=== PATIENT | male | born 1945 | race Caucasian/White ===

== ENCOUNTER 2016-07-23 19:44 | Inpatient (IN) | payer MEDICAID ==
[~2016-07-23] VITALS: Ht 172.7 cm; Wt 80.7 kg
[~2016-07-23 19:44] MED LIST: ACET650S26 GT; BACL10TA GT; BISA10SU8 RC; CHLO473M3 PO; CLON0.1T GT; CLON0.5T GT; DEXT1CAP3 GT; DOCU100T2 GT; HEPA500014 IJ; HYDR-548 GT; LANS30CA10 GT; LORA1TAB GT; MAGN400O6 GT; NA P133E RC; QUET100T GT; QUET50TA GT; SENN8.6T6 GT; VALP250S11 GT
[2016-07-23 20:14] LABS: CALCIUM, SERUM 8.6 mg/dL (8.5-10.1); CARBON DIOXIDE 27 mmol/L (21-32); CHLORIDE 97 mmol/L (98-107); CREATININE 0.5 mg/dL (0.6-1.3); GLUCOSE 117 mg/dL (74-106); POTASSIUM 3.9 mmol/L (3.5-5.1); SODIUM SERUM 132 mmol/L (136-145); UREA NITROGEN, BLOOD 9 mg/dL (7-18)
[2016-07-23 20:18] LABS: PROTHROMBIN TIME 10.7 SECS (9.5-12.7)
[2016-07-23 20:21] LABS: TROPONIN I < 0.017 ng/mL (0.00-0.056)
[2016-07-23 20:27] LABS: B-TYPE NATRIURETIC PEPTIDE 135 PG/ML (0-125)
[2016-07-23 21:12] LABS: BASOPHILS % (AUTO) 0.1 % (0.0-2.0); EOSINOPHILS # (AUTO) 0.2 /CMM (0.0-0.7); EOSINOPHILS % (AUTO) 1.5 % (0.0-6.0); HEMATOCRIT 35 % (39-51); HEMOGLOBIN 12.6 g/dL (13.5-17.5); LYMPHOCYTES # (AUTO) 1.6 /CMM (0.8-4.8); LYMPHOCYTES % (AUTO) 13.3 % (20.0-44.0); MEAN CORPUSCULAR HEMOGLOBIN 34 PG (26.0-33.0); MEAN CORPUSCULAR HGB CONC 36 g/dl (31.0-36.0); MEAN CORPUSCULAR VOLUME 95 fL (80-96); MONOCYTES # (AUTO) 0.7 /CMM (0.1-1.30); MONOCYTES % (AUTO) 5.8 % (2.0-12.0); NEUTROPHILS # (AUTO) 9.8 /CMM (1.8-8.9); NEUTROPHILS % (AUTO) 79.3 % (43.0-81.0); PLATELET COUNT (AUTO) 262 /CMM (150-450); RDW COEFFICIENT OF VARIATION 14.5 (11.5-15.0); RED BLOOD CELL COUNT(AUTO) 3.73 MIL/uL (4.5-6.0); WHITE BLOOD COUNT (AUTO) 12.3 K/uL (4.3-11.0)
[2016-07-23 22:00] VITALS: BP 156/91
[2016-07-23] MEDS ORDERED: BISACODYL SUPP (10 MG) 10 MG/SUPP.RECT SUPP.RECT RC PRN (23:00)
[2016-07-23] MEDS ORDERED: MORPHINE SULFATE INJ 2 MG/ML DISP.SYRIN IV PRN (23:00)
[2016-07-23] MEDS ORDERED: CLONIDINE HCL 0.1 MG TABLET GT PRN (23:00)
[2016-07-23] MEDS ORDERED: ACETAMINOPHEN 650 MG/20.3 ML UDC GT PRN (23:00)
[2016-07-23] MEDS ORDERED: NA PHOS,M-B/NA PHOS,DI-BA 1 EA ENEMA RC PRN (23:00)
[2016-07-23] MEDS ORDERED: LORAZEPAM 1 MG TABLET GT PRN (23:00)
[2016-07-23] MEDS ORDERED: HYDROCODONE/APAP 10/325MG 1 EA TABLET GT PRN (23:00)
[2016-07-23] MEDS ORDERED: ALBUTEROL FS 2.5 MG/3 ML VIAL.NEB NEB PRN (23:00)
[2016-07-23] MEDS ORDERED: MAGNESIUM HYDROXIDE 30 ML UDC GT PRN (23:00)
[2016-07-24] VITALS: BP 116/75
[2016-07-24] MEDS ORDERED: VANCOMYCIN 1 GM in IV D5W 250 ML IV ONE ×2
[2016-07-24] MEDS ORDERED: IV SET PRIMARY PUMP SET 1 EA INFUS.SET MC ONE (00:11)
[2016-07-24] MEDS ORDERED: VANCOMYCIN 1 GM VIAL ONE (00:11)
[2016-07-24] MEDS ORDERED: IV D5W 250 ML IV ONE (00:12)
[2016-07-24] MEDS ORDERED: IV NS 0.9% 250 ML IV ONE (00:16)
[2016-07-24] MEDS ORDERED: SECONDARY IV SET 1 EA INFUS.SET MC ONE (00:17)
[2016-07-24] MEDS ORDERED: FIBERSOURCE HN 1,000 ML BOTTLE ONE (00:31)
[2016-07-24] MEDS ORDERED: FIBERSOURCE HN 1,000 ML BOTTLE GT PRN ×2 (01:00→08:03)
[2016-07-24 04:00] VITALS: BP 116/68
[2016-07-24] MEDS ORDERED: IV D5W 50 ML IV ONE (04:09)
[2016-07-24] MEDS ORDERED: clonazePAM 0.5 MG TABLET ONE (04:09)
[2016-07-24] MEDS ORDERED: PIPERACILLIN /TAZOBACTAM 3.375 G VIAL IV ONE (04:09)
[2016-07-24] MEDS: clonazePAM 0.5 MG TABLET GT SCH ×3 (04:40→20:47)
[2016-07-24] MEDS ORDERED: PIPERACILLIN /TAZOBACTAM 3.375 G in IV D5W 50 ML IV SCH (05:00)
[2016-07-24 08:00] VITALS: BP 112/70
[2016-07-24 08:26] LABS: BASOPHILS # (AUTO) 0.2 /CMM (0.0-0.2); BASOPHILS % (AUTO) 1.7 % (0.0-2.0); EOSINOPHILS # (AUTO) 0.4 /CMM (0.0-0.7); HEMATOCRIT 32 % (39-51); LYMPHOCYTES # (AUTO) 1.5 /CMM (0.8-4.8); LYMPHOCYTES % (AUTO) 13.5 % (20.0-44.0); MEAN CORPUSCULAR HEMOGLOBIN 33 PG (26.0-33.0); MEAN CORPUSCULAR HGB CONC 35 g/dl (31.0-36.0); MEAN CORPUSCULAR VOLUME 95 fL (80-96); MONOCYTES # (AUTO) 0.8 /CMM (0.1-1.30); MONOCYTES % (AUTO) 7.3 % (2.0-12.0); NEUTROPHILS # (AUTO) 7.9 /CMM (1.8-8.9); NEUTROPHILS % (AUTO) 73.5 % (43.0-81.0); PLATELET COUNT (AUTO) 238 /CMM (150-450); RDW COEFFICIENT OF VARIATION 14.3 (11.5-15.0); RED BLOOD CELL COUNT(AUTO) 3.33 MIL/uL (4.5-6.0); WHITE BLOOD COUNT (AUTO) 10.8 K/uL (4.3-11.0)
[2016-07-24] MEDS: BACLOFEN (10 MG) 10 MG TABLET GT SCH ×2 (08:42→20:47)
[2016-07-24] MEDS: PANTOPRAZOLE 40 MG VIAL IV SCH (08:42)
[2016-07-24 08:46] LABS: ALBUMIN 2.6 g/dL (3.4-5.0); BILIRUBIN,TOTAL 0.4 mg/dL (0.2-1.0); CALCIUM, SERUM 8.5 mg/dL (8.5-10.1); CREATININE 0.6 mg/dL (0.6-1.3); PHOSPHORUS 3.5 mg/dL (2.5-4.9); TOTAL PROTEIN, SERUM 6.7 g/dL (6.4-8.2)
[2016-07-24 08:49] LABS: THYROID STIMULATING HORMONE 4.371 uIU/mL (0.358-3.74)
[2016-07-24] MEDS ORDERED: Medication Not On Formulary EA (Dextromethorphan Hbr/Quinidine (Nuedexta 20-10 Mg Capsul GT SCH ×2 (09:00)
[2016-07-24] MEDS ORDERED: FEE PK DOSING 1 MIN EA MC ONE (09:10)
[2016-07-24] MEDS: VALPROIC ACID 250 MG/5 ML UDC GT SCH ×3 (09:37→17:43)
[2016-07-24] MEDS: DOCUSATE SODIUM LIQ 100 MG/10 ML UDC GT SCH (09:37)
[2016-07-24] MEDS: QUETIAPINE FUMARATE 25 MG TABLET GT SCH ×2 (09:37→17:43)
[2016-07-24] MEDS: PIPERACILLIN /TAZOBACTAM 3.375 G in IV D5W 50 ML IV SCH ×2 (12:13→18:01)
[2016-07-24] MEDS: VANCOMYCIN 0.75 GM in IV D5W 250 ML IV SCH (13:08)
[2016-07-24] MEDS: ENOXAPARIN SODIUM 40 MG/0.4 ML DISP.SYRIN SQ SCH (13:09)
[2016-07-24 16:00] VITALS: BP 102/61
[2016-07-24] MEDS: NUTREN PULMONARY 1,000 ML BAG GT PRN (17:45)
[2016-07-24 19:40] VITALS: BP 108/65
[2016-07-24 20:00] VITALS: BP 108/65
[2016-07-24] MEDS: QUETIAPINE FUMARATE 100 MG TABLET GT SCH (21:05)
[2016-07-24] MEDS: SENNOSIDES 8.6 MG TABLET GT SCH (21:05)
[2016-07-24] MEDS ORDERED: VANCOMYCIN 0.75 GM in IV D5W 250 ML IV SCH (23:00)
[2016-07-25] MEDS ORDERED: SECONDARY IV SET 1 EA INFUS.SET MC ONE (00:17)
[2016-07-25] MEDS: PIPERACILLIN /TAZOBACTAM 3.375 G in IV D5W 50 ML IV SCH ×4 (00:23→17:22)
[2016-07-25] MEDS: VANCOMYCIN 0.75 GM in IV D5W 250 ML IV SCH (00:31)
[2016-07-25] MEDS: clonazePAM 0.5 MG TABLET GT SCH ×4 (05:21→21:53)
[2016-07-25 07:35] LABS: BASOPHILS # (AUTO) 0.1 /CMM (0.0-0.2); BASOPHILS % (AUTO) 0.8 % (0.0-2.0); EOSINOPHILS # (AUTO) 0.7 /CMM (0.0-0.7); EOSINOPHILS % (AUTO) 7.7 % (0.0-6.0); HEMATOCRIT 37 % (39-51); HEMOGLOBIN 12.7 g/dL (13.5-17.5); LYMPHOCYTES # (AUTO) 1.2 /CMM (0.8-4.8); LYMPHOCYTES % (AUTO) 13.4 % (20.0-44.0); MEAN CORPUSCULAR HEMOGLOBIN 33 PG (26.0-33.0); MEAN CORPUSCULAR HGB CONC 34 g/dl (31.0-36.0); MEAN CORPUSCULAR VOLUME 96 fL (80-96); MONOCYTES # (AUTO) 1.1 /CMM (0.1-1.30); MONOCYTES % (AUTO) 11.9 % (2.0-12.0); NEUTROPHILS # (AUTO) 5.9 /CMM (1.8-8.9); NEUTROPHILS % (AUTO) 66.2 % (43.0-81.0); PLATELET COUNT (AUTO) 234 /CMM (150-450); RDW COEFFICIENT OF VARIATION 15.3 (11.5-15.0); RED BLOOD CELL COUNT(AUTO) 3.88 MIL/uL (4.5-6.0); WHITE BLOOD COUNT (AUTO) 8.9 K/uL (4.3-11.0)
[2016-07-25 07:56] LABS: CALCIUM, SERUM 9.1 mg/dL (8.5-10.1); CREATININE 0.7 mg/dL (0.6-1.3); MAGNESIUM 2.3 mg/dL (1.8-2.4); POTASSIUM 4.2 mmol/L (3.5-5.1)
[2016-07-25 08:00] VITALS: BP 111/66
[2016-07-25] MEDS: VALPROIC ACID 250 MG/5 ML UDC GT SCH ×4 (08:35→17:00)
[2016-07-25] MEDS: DOCUSATE SODIUM LIQ 100 MG/10 ML UDC GT SCH (08:35)
[2016-07-25] MEDS: PANTOPRAZOLE 40 MG VIAL IV SCH (08:35)
[2016-07-25] MEDS: BACLOFEN (10 MG) 10 MG TABLET GT SCH ×2 (08:36→21:53)
[2016-07-25] MEDS: QUETIAPINE FUMARATE 25 MG TABLET GT SCH ×2 (08:36→17:00)
[2016-07-25] MEDS: ENOXAPARIN SODIUM 40 MG/0.4 ML DISP.SYRIN SQ SCH (08:38)
[2016-07-25] MEDS: Z GUARD REMEDY 2 OZ OINT TP SCH (13:12)
[2016-07-25] MEDS: HYDROGEL DRESSING 90 GM TUBE TP PRN (13:12)
[2016-07-25] MEDS: HYDROGEL DRESSING 90 GM TUBE TP SCH (13:19)
[2016-07-25 16:00] VITALS: BP 119/75
[2016-07-25 20:00] VITALS: BP 131/85
[2016-07-25] MEDS ORDERED: IV D5/0.45 NACL 1,000 ML IV PRN (20:00)
[2016-07-25] MEDS: QUETIAPINE FUMARATE 100 MG TABLET GT SCH (21:53)
[2016-07-25] MEDS: SENNOSIDES 8.6 MG TABLET GT SCH (21:53)
[2016-07-25] MEDS ORDERED: IV SET PRIMARY PUMP SET 1 EA INFUS.SET MC ONE (21:56)
[2016-07-26] MEDS: PIPERACILLIN /TAZOBACTAM 3.375 G in IV D5W 50 ML IV SCH ×4 (00:28→17:00)
[2016-07-26] MEDS: clonazePAM 0.5 MG TABLET GT SCH ×3 (04:27→21:06)
[2016-07-26 06:25] LABS: BASOPHILS % (AUTO) 0.4 % (0.0-2.0); EOSINOPHILS # (AUTO) 0.5 /CMM (0.0-0.7); EOSINOPHILS % (AUTO) 9.6 % (0.0-6.0); HEMATOCRIT 32 % (39-51); HEMOGLOBIN 11.2 g/dL (13.5-17.5); LYMPHOCYTES # (AUTO) 1.3 /CMM (0.8-4.8); MEAN CORPUSCULAR HEMOGLOBIN 33 PG (26.0-33.0); MEAN CORPUSCULAR HGB CONC 35 g/dl (31.0-36.0); MEAN CORPUSCULAR VOLUME 96 fL (80-96); MONOCYTES # (AUTO) 0.8 /CMM (0.1-1.30); MONOCYTES % (AUTO) 15.1 % (2.0-12.0); NEUTROPHILS # (AUTO) 2.7 /CMM (1.8-8.9); NEUTROPHILS % (AUTO) 50.9 % (43.0-81.0); PLATELET COUNT (AUTO) 266 /CMM (150-450); RDW COEFFICIENT OF VARIATION 15.3 (11.5-15.0); RED BLOOD CELL COUNT(AUTO) 3.39 MIL/uL (4.5-6.0); WHITE BLOOD COUNT (AUTO) 5.2 K/uL (4.3-11.0)
[2016-07-26 07:00] LABS: CREATININE 0.7 mg/dL (0.6-1.3); MAGNESIUM 2.3 mg/dL (1.8-2.4)
[2016-07-26 08:00] VITALS: BP 120/81
[2016-07-26] MEDS: VALPROIC ACID 250 MG/5 ML UDC GT SCH ×3 (08:36→16:50)
[2016-07-26] MEDS: BACLOFEN (10 MG) 10 MG TABLET GT SCH ×2 (08:36→21:06)
[2016-07-26] MEDS: QUETIAPINE FUMARATE 25 MG TABLET GT SCH ×2 (08:36→16:50)
[2016-07-26] MEDS: PANTOPRAZOLE 40 MG VIAL IV SCH (08:36)
[2016-07-26] MEDS: DOCUSATE SODIUM LIQ 100 MG/10 ML UDC GT SCH (08:36)
[2016-07-26] MEDS: Z GUARD REMEDY 2 OZ OINT TP SCH (08:37)
[2016-07-26] MEDS: HYDROGEL DRESSING 90 GM TUBE TP SCH (08:37)
[2016-07-26] MEDS: ENOXAPARIN SODIUM 40 MG/0.4 ML DISP.SYRIN SQ SCH (08:38)
[2016-07-26] MEDS: NUTREN PULMONARY 1,000 ML BAG GT PRN (11:07)
[2016-07-26] MEDS ORDERED: VANCOMYCIN 1.25 GM in IV D5W 500 ML IV ONE (15:00)
[2016-07-26 16:00] VITALS: BP 109/76
[2016-07-26] MEDS ORDERED: IV NS 0.9% 250 ML IV ONE (17:21)
[2016-07-26 20:00] VITALS: BP 124/77
[2016-07-26 20:42] VITALS: BP 124/77
[2016-07-26] MEDS: QUETIAPINE FUMARATE 100 MG TABLET GT SCH (21:06)
[2016-07-26] MEDS: SENNOSIDES 8.6 MG TABLET GT SCH (21:06)
[2016-07-26] MEDS: MUPIROCIN OINT 2% 22 GM TUBE SCH (21:07)
[2016-07-27] MEDS: PIPERACILLIN /TAZOBACTAM 3.375 G in IV D5W 50 ML IV SCH ×5 (00:52→23:50)
[2016-07-27] MEDS: VANCOMYCIN 1 GM in IV D5W 250 ML IV SCH ×2 (03:49→15:20)
[2016-07-27] MEDS: clonazePAM 0.5 MG TABLET GT SCH ×3 (05:27→21:17)
[2016-07-27 08:00] VITALS: BP 129/78
[2016-07-27] MEDS: NUTREN PULMONARY 1,000 ML BAG GT PRN (08:41)
[2016-07-27] MEDS: Z GUARD REMEDY 2 OZ OINT TP SCH (08:41)
[2016-07-27] MEDS: VALPROIC ACID 250 MG/5 ML UDC GT SCH ×3 (08:41→17:15)
[2016-07-27] MEDS: PANTOPRAZOLE 40 MG VIAL IV SCH (08:41)
[2016-07-27] MEDS: MUPIROCIN OINT 2% 22 GM TUBE SCH ×2 (08:42→21:19)
[2016-07-27] MEDS: HYDROGEL DRESSING 90 GM TUBE TP SCH (08:42)
[2016-07-27] MEDS: DOCUSATE SODIUM LIQ 100 MG/10 ML UDC GT SCH (08:42)
[2016-07-27] MEDS: BACLOFEN (10 MG) 10 MG TABLET GT SCH ×2 (08:42→21:17)
[2016-07-27] MEDS: QUETIAPINE FUMARATE 25 MG TABLET GT SCH ×2 (08:42→17:15)
[2016-07-27] MEDS: ENOXAPARIN SODIUM 40 MG/0.4 ML DISP.SYRIN SQ SCH (08:43)
[2016-07-27 09:01] LABS: BASOPHILS % (AUTO) 0.2 % (0.0-2.0); EOSINOPHILS # (AUTO) 0.3 /CMM (0.0-0.7); EOSINOPHILS % (AUTO) 3.6 % (0.0-6.0); HEMATOCRIT 33 % (39-51); HEMOGLOBIN 11.6 g/dL (13.5-17.5); LYMPHOCYTES # (AUTO) 1.3 /CMM (0.8-4.8); LYMPHOCYTES % (AUTO) 15.3 % (20.0-44.0); MEAN CORPUSCULAR HEMOGLOBIN 33 PG (26.0-33.0); MEAN CORPUSCULAR HGB CONC 35 g/dl (31.0-36.0); MEAN CORPUSCULAR VOLUME 95 fL (80-96); MONOCYTES # (AUTO) 0.9 /CMM (0.1-1.30); MONOCYTES % (AUTO) 11.4 % (2.0-12.0); NEUTROPHILS # (AUTO) 5.7 /CMM (1.8-8.9); NEUTROPHILS % (AUTO) 69.5 % (43.0-81.0); PLATELET COUNT (AUTO) 265 /CMM (150-450); RDW COEFFICIENT OF VARIATION 14.5 (11.5-15.0); WHITE BLOOD COUNT (AUTO) 8.2 K/uL (4.3-11.0)
[2016-07-27 09:03] LABS: CALCIUM, SERUM 8.5 mg/dL (8.5-10.1); CREATININE 1.3 mg/dL (0.6-1.3); MAGNESIUM 2.4 mg/dL (1.8-2.4); PHOSPHORUS 3.9 mg/dL (2.5-4.9); POTASSIUM 3.7 mmol/L (3.5-5.1)
[2016-07-27] MEDS ORDERED: IV NS 0.9% 250 ML IV ONE (12:30)
[2016-07-27 16:00] VITALS: BP 135/80
[2016-07-27 20:00] VITALS: BP 121/76
[2016-07-27] MEDS: SENNOSIDES 8.6 MG TABLET GT SCH (21:17)
[2016-07-27] MEDS: QUETIAPINE FUMARATE 100 MG TABLET GT SCH (21:17)
[2016-07-28] MEDS: VANCOMYCIN 1 GM in IV D5W 250 ML IV SCH ×2 (03:00→15:00)
[2016-07-28] MEDS: PIPERACILLIN /TAZOBACTAM 3.375 G in IV D5W 50 ML IV SCH ×3 (05:03→18:12)
[2016-07-28] MEDS: NUTREN PULMONARY 1,000 ML BAG GT PRN (05:56)
[2016-07-28] MEDS: clonazePAM 0.5 MG TABLET GT SCH ×3 (05:56→21:30)
[2016-07-28] MEDS: Z GUARD REMEDY 2 OZ OINT TP PRN (05:58)
[2016-07-28 06:31] LABS: CALCIUM, SERUM 8.8 mg/dL (8.5-10.1); CREATININE 1.9 mg/dL (0.6-1.3); POTASSIUM 3.4 mmol/L (3.5-5.1)
[2016-07-28 08:00] VITALS: BP 155/73
[2016-07-28] MEDS: VALPROIC ACID 250 MG/5 ML UDC GT SCH ×3 (08:40→16:32)
[2016-07-28] MEDS: BACLOFEN (10 MG) 10 MG TABLET GT SCH ×2 (08:40→21:30)
[2016-07-28] MEDS: DOCUSATE SODIUM LIQ 100 MG/10 ML UDC GT SCH (08:40)
[2016-07-28] MEDS: QUETIAPINE FUMARATE 25 MG TABLET GT SCH ×2 (08:41→16:31)
[2016-07-28] MEDS: PANTOPRAZOLE 40 MG VIAL IV SCH (08:41)
[2016-07-28] MEDS: Z GUARD REMEDY 2 OZ OINT TP SCH (08:42)
[2016-07-28] MEDS: MUPIROCIN OINT 2% 22 GM TUBE SCH ×2 (08:43→21:30)
[2016-07-28] MEDS: HYDROGEL DRESSING 90 GM TUBE TP SCH (08:43)
[2016-07-28] MEDS: ENOXAPARIN SODIUM 40 MG/0.4 ML DISP.SYRIN SQ SCH (08:45)
[2016-07-28] MEDS ORDERED: POTASSIUM CHLORIDE 20 MEQ POWDER PACKET GT ONE (11:30)
[2016-07-28] MEDS ORDERED: ASPIRIN 81 MG TAB.CHEW PO ONE ×2 (12:00)
[2016-07-28 16:00] VITALS: BP_SYST 158; BP_DIAS 82; BP_DIAS 88
[2016-07-28 20:00] VITALS: BP 110/68
[2016-07-28] MEDS: QUETIAPINE FUMARATE 100 MG TABLET GT SCH (21:30)
[2016-07-28] MEDS: SENNOSIDES 8.6 MG TABLET GT SCH (21:30)
[2016-07-28] MEDS: LINEZOLID 600 MG TABLET GT SCH (21:31)
[2016-07-29] MEDS: PIPERACILLIN /TAZOBACTAM 2.25 G in IV D5W 50 ML IV SCH ×4 (00:22→17:38)
[2016-07-29] MEDS: NUTREN PULMONARY 1,000 ML BAG GT PRN (06:26)
[2016-07-29] MEDS: clonazePAM 0.5 MG TABLET GT SCH ×3 (06:26→21:53)
[2016-07-29] MEDS: Z GUARD REMEDY 2 OZ OINT TP PRN (06:27)
[2016-07-29] MEDS: HYDROGEL DRESSING 90 GM TUBE TP PRN (06:27)
[2016-07-29 07:42] LABS: CREATININE 1.9 mg/dL (0.6-1.3); POTASSIUM 3.9 mmol/L (3.5-5.1)
[2016-07-29 08:00] VITALS: BP 137/83
[2016-07-29] MEDS: BACLOFEN (10 MG) 10 MG TABLET GT SCH ×2 (08:43→21:54)
[2016-07-29] MEDS: LINEZOLID 600 MG TABLET GT SCH ×2 (08:43→21:54)
[2016-07-29] MEDS: VALPROIC ACID 250 MG/5 ML UDC GT SCH ×3 (08:43→16:57)
[2016-07-29] MEDS: DOCUSATE SODIUM LIQ 100 MG/10 ML UDC GT SCH (08:43)
[2016-07-29] MEDS: QUETIAPINE FUMARATE 25 MG TABLET GT SCH ×2 (08:43→16:57)
[2016-07-29] MEDS: ENOXAPARIN SODIUM 40 MG/0.4 ML DISP.SYRIN SQ SCH (08:44)
[2016-07-29] MEDS: PANTOPRAZOLE 40 MG VIAL IV SCH (08:47)
[2016-07-29] MEDS ORDERED: IV NS 0.9% 1,000 ML IV PRN (11:30)
[2016-07-29] MEDS: HYDROGEL DRESSING 90 GM TUBE TP SCH (11:50)
[2016-07-29] MEDS: Z GUARD REMEDY 2 OZ OINT TP SCH (11:51)
[2016-07-29] MEDS: MUPIROCIN OINT 2% 22 GM TUBE SCH ×2 (11:51→21:54)
[2016-07-29] MEDS ORDERED: PIPERACILLIN /TAZOBACTAM 3.375 G in IV D5W 50 ML IV SCH (12:00)
[2016-07-29] MEDS ORDERED: VANCOMYCIN 1 GM in IV D5W 250 ML IV SCH (15:00)
[2016-07-29 16:00] VITALS: BP 149/83
[2016-07-29] MEDS: LACTOBACILLUS RHAMNOSUS GG 1 EACH CAP.SPRINK GT SCH (16:57)
[2016-07-29 20:00] VITALS: BP 153/84
[2016-07-29] MEDS: SENNOSIDES 8.6 MG TABLET GT SCH (21:53)
[2016-07-29] MEDS: QUETIAPINE FUMARATE 100 MG TABLET GT SCH (21:54)
[2016-07-30] MEDS: PIPERACILLIN /TAZOBACTAM 2.25 G in IV D5W 50 ML IV SCH ×4 (00:17→17:10)
[2016-07-30] MEDS ORDERED: IV SET PRIMARY PUMP SET 1 EA INFUS.SET MC ONE (01:37)
[2016-07-30] MEDS: clonazePAM 0.5 MG TABLET GT SCH ×3 (05:17→20:41)
[2016-07-30] MEDS: NUTREN PULMONARY 1,000 ML BAG GT PRN (05:17)
[2016-07-30 08:00] VITALS: BP 144/83
[2016-07-30] MEDS: LACTOBACILLUS RHAMNOSUS GG 1 EACH CAP.SPRINK GT SCH ×2 (08:53→17:10)
[2016-07-30] MEDS: DOCUSATE SODIUM LIQ 100 MG/10 ML UDC GT SCH (08:53)
[2016-07-30] MEDS: VALPROIC ACID 250 MG/5 ML UDC GT SCH ×3 (08:53→17:10)
[2016-07-30] MEDS: BACLOFEN (10 MG) 10 MG TABLET GT SCH ×2 (08:53→20:41)
[2016-07-30] MEDS: LINEZOLID 600 MG TABLET GT SCH ×2 (08:53→20:41)
[2016-07-30] MEDS: QUETIAPINE FUMARATE 25 MG TABLET GT SCH ×2 (08:54→17:10)
[2016-07-30] MEDS: PANTOPRAZOLE 40 MG VIAL IV SCH (08:54)
[2016-07-30] MEDS: MUPIROCIN OINT 2% 22 GM TUBE SCH ×2 (09:07→20:42)
[2016-07-30] MEDS: HYDROGEL DRESSING 90 GM TUBE TP SCH (09:07)
[2016-07-30] MEDS: Z GUARD REMEDY 2 OZ OINT TP SCH (09:07)
[2016-07-30] MEDS: ENOXAPARIN SODIUM 40 MG/0.4 ML DISP.SYRIN SQ SCH (09:08)
[2016-07-30 09:12] LABS: CALCIUM, SERUM 9.1 mg/dL (8.5-10.1); CREATININE 1.4 mg/dL (0.6-1.3); POTASSIUM 4.1 mmol/L (3.5-5.1)
[2016-07-30 16:00] VITALS: BP 147/73
[2016-07-30] MEDS ORDERED: IV NS 0.9% 250 ML IV ONE (16:21)
[2016-07-30 20:00] VITALS: BP 135/77
[2016-07-30] MEDS: SENNOSIDES 8.6 MG TABLET GT SCH (21:59)
[2016-07-30] MEDS: QUETIAPINE FUMARATE 100 MG TABLET GT SCH (21:59)
[2016-07-31] MEDS: PIPERACILLIN /TAZOBACTAM 2.25 G in IV D5W 50 ML IV SCH ×5 (00:07→23:31)
[2016-07-31] MEDS: clonazePAM 0.5 MG TABLET GT SCH ×3 (05:08→20:26)
[2016-07-31 08:10] VITALS: BP 152/77
[2016-07-31] MEDS: LACTOBACILLUS RHAMNOSUS GG 1 EACH CAP.SPRINK GT SCH ×2 (08:21→17:08)
[2016-07-31] MEDS: DOCUSATE SODIUM LIQ 100 MG/10 ML UDC GT SCH (08:21)
[2016-07-31] MEDS: VALPROIC ACID 250 MG/5 ML UDC GT SCH ×3 (08:22→17:08)
[2016-07-31] MEDS: BACLOFEN (10 MG) 10 MG TABLET GT SCH ×2 (08:22→20:26)
[2016-07-31] MEDS: PANTOPRAZOLE 40 MG VIAL IV SCH (08:23)
[2016-07-31] MEDS: QUETIAPINE FUMARATE 25 MG TABLET GT SCH ×2 (08:23→17:08)
[2016-07-31] MEDS: LINEZOLID 600 MG TABLET GT SCH ×2 (08:23→20:27)
[2016-07-31] MEDS: Z GUARD REMEDY 2 OZ OINT TP SCH (08:24)
[2016-07-31] MEDS: ENOXAPARIN SODIUM 40 MG/0.4 ML DISP.SYRIN SQ SCH (08:25)
[2016-07-31] MEDS: HYDROGEL DRESSING 90 GM TUBE TP SCH (08:25)
[2016-07-31] MEDS: MUPIROCIN OINT 2% 22 GM TUBE SCH ×2 (08:25→20:28)
[2016-07-31] MEDS: NUTREN PULMONARY 1,000 ML BAG GT PRN (08:39)
[2016-07-31 12:07] LABS: CALCIUM, SERUM 9.1 mg/dL (8.5-10.1); CREATININE 1.3 mg/dL (0.6-1.3); POTASSIUM 3.8 mmol/L (3.5-5.1)
[2016-07-31 16:00] VITALS: BP 184/84
[2016-07-31 20:00] VITALS: BP 168/88
[2016-07-31 20:31] VITALS: BP 159/83
[2016-07-31] MEDS: QUETIAPINE FUMARATE 100 MG TABLET GT SCH (21:39)
[2016-07-31] MEDS: SENNOSIDES 8.6 MG TABLET GT SCH (21:40)
[2016-07-31 22:00] VITALS: BP 138/82
[2016-07-31] MEDS ORDERED: IV NS 0.9% 250 ML IV ONE (23:26)
[2016-08-01] MEDS: PIPERACILLIN /TAZOBACTAM 2.25 G in IV D5W 50 ML IV SCH ×2 (05:00→12:49)
[2016-08-01] MEDS: clonazePAM 0.5 MG TABLET GT SCH ×3 (05:01→21:45)
[2016-08-01] MEDS: NUTREN PULMONARY 1,000 ML BAG GT PRN (05:04)
[2016-08-01 08:00] VITALS: BP 148/78
[2016-08-01] MEDS: LINEZOLID 600 MG TABLET GT SCH ×2 (09:05→21:45)
[2016-08-01] MEDS: BACLOFEN (10 MG) 10 MG TABLET GT SCH ×2 (09:05→21:46)
[2016-08-01] MEDS: VALPROIC ACID 250 MG/5 ML UDC GT SCH ×3 (09:05→17:35)
[2016-08-01] MEDS: PANTOPRAZOLE 40 MG VIAL IV SCH (09:05)
[2016-08-01] MEDS: QUETIAPINE FUMARATE 25 MG TABLET GT SCH ×2 (09:05→17:35)
[2016-08-01] MEDS: LACTOBACILLUS RHAMNOSUS GG 1 EACH CAP.SPRINK GT SCH ×2 (09:05→17:35)
[2016-08-01] MEDS: DOCUSATE SODIUM LIQ 100 MG/10 ML UDC GT SCH (09:05)
[2016-08-01] MEDS: MUPIROCIN OINT 2% 22 GM TUBE SCH ×2 (09:06→21:47)
[2016-08-01] MEDS: Z GUARD REMEDY 2 OZ OINT TP SCH (09:06)
[2016-08-01] MEDS: HYDROGEL DRESSING 90 GM TUBE TP SCH (09:06)
[2016-08-01] MEDS: ENOXAPARIN SODIUM 40 MG/0.4 ML DISP.SYRIN SQ SCH (09:08)
[2016-08-01 11:49] LABS: CREATININE 1.2 mg/dL (0.6-1.3); POTASSIUM 3.5 mmol/L (3.5-5.1)
[2016-08-01 16:00] VITALS: BP 150/87
[2016-08-01] MEDS: PIPERACILLIN /TAZOBACTAM 3.375 G in IV D5W 50 ML IV SCH (17:35)
[2016-08-01 20:00] VITALS: BP 147/76
[2016-08-01] MEDS ORDERED: PIPERACILLIN /TAZOBACTAM 3.375 G in IV D5W 50 ML IV SCH (21:00)
[2016-08-01] MEDS: QUETIAPINE FUMARATE 100 MG TABLET GT SCH (21:45)
[2016-08-01] MEDS: SENNOSIDES 8.6 MG TABLET GT SCH (21:46)
[2016-08-01 22:00] VITALS: BP 147/76
[2016-08-02] MEDS: PIPERACILLIN /TAZOBACTAM 3.375 G in IV D5W 50 ML IV SCH ×4 (00:06→17:03)
[2016-08-02] MEDS: clonazePAM 0.5 MG TABLET GT SCH ×2 (05:52→12:16)
[2016-08-02] MEDS: NUTREN PULMONARY 1,000 ML BAG GT PRN (05:52)
[2016-08-02 08:00] VITALS: BP 142/84
[2016-08-02] MEDS: QUETIAPINE FUMARATE 25 MG TABLET GT SCH ×2 (08:48→17:03)
[2016-08-02] MEDS: LACTOBACILLUS RHAMNOSUS GG 1 EACH CAP.SPRINK GT SCH ×2 (08:48→17:03)
[2016-08-02] MEDS: LINEZOLID 600 MG TABLET GT SCH (08:48)
[2016-08-02] MEDS: DOCUSATE SODIUM LIQ 100 MG/10 ML UDC GT SCH (08:48)
[2016-08-02] MEDS: BACLOFEN (10 MG) 10 MG TABLET GT SCH (08:48)
[2016-08-02] MEDS: VALPROIC ACID 250 MG/5 ML UDC GT SCH ×3 (08:48→17:03)
[2016-08-02] MEDS: PANTOPRAZOLE 40 MG VIAL IV SCH (08:48)
[2016-08-02] MEDS: HYDROGEL DRESSING 90 GM TUBE TP SCH (08:50)
[2016-08-02] MEDS: Z GUARD REMEDY 2 OZ OINT TP SCH (08:50)
[2016-08-02] MEDS: MUPIROCIN OINT 2% 22 GM TUBE SCH (08:51)
[2016-08-02] MEDS: ENOXAPARIN SODIUM 40 MG/0.4 ML DISP.SYRIN SQ SCH (08:58)
[2016-08-02] MEDS ORDERED: LINE600T GT (11:53)
[2016-08-02] MEDS ORDERED: PIPE3.379 IV (11:53)
[2016-08-02] MEDS ORDERED: MUPI22OI7 (11:53)
[2016-08-02 16:00] VITALS: BP 136/82
== END 2016-08-02 18:00 | DRG 252 ==
LOC: ER 19:52 → TELE 21:30 → MED 07-24 08:42
PROVIDERS: ADMIT Internal Medicine; ATTEND Internal Medicine
PROC: 0B21XFZ Change Tracheostomy Device in Trachea, External Approach (ICD-10-PCS; principal; 2016-07-25)
DX: K94.22 Gastrostomy infection (principal); N17.0 Acute kidney failure with tubular necrosis; G93.49 Other encephalopathy; J96.10 Chronic respiratory failure, unspecified whether with hypoxia or hypercapnia; R53.2 Functional quadriplegia; J95.03 Malfunction of tracheostomy stoma; R13.10 Dysphagia, unspecified; Z87.820 Personal history of traumatic brain injury; I10 Essential (primary) hypertension; G40.909 Epilepsy, unspecified, not intractable, without status epilepticus; Z79.899 Other long term (current) drug therapy; Z86.73 Personal history of transient ischemic attack (TIA), and cerebral infarction without residual deficits; Z87.891 Personal history of nicotine dependence; H10.9 Unspecified conjunctivitis; E44.1 Mild protein-calorie malnutrition; E88.09 Other disorders of plasma-protein metabolism, not elsewhere classified; D68.59 Other primary thrombophilia; D63.8 Anemia in other chronic diseases classified elsewhere; J44.9 Chronic obstructive pulmonary disease, unspecified; F09 Unspecified mental disorder due to known physiological condition; Y92.129 Unspecified place in nursing home as the place of occurrence of the external cause; L03.311 Cellulitis of abdominal wall; Y84.9 Medical procedure, unspecified as the cause of abnormal reaction of the patient, or of later complication, without mention of misadventure at the time of the procedure; Y82.9 Unspecified medical devices associated with adverse incidents; R73.9 Hyperglycemia, unspecified; B95.62 Methicillin resistant Staphylococcus aureus infection as the cause of diseases classified elsewhere; B96.4 Proteus (mirabilis) (morganii) as the cause of diseases classified elsewhere; Z16.12 Extended spectrum beta lactamase (ESBL) resistance; E87.1 Hypo-osmolality and hyponatremia; R47.01 Aphasia; K56.41 Fecal impaction; Z68.27 Body mass index [BMI] 27.0-27.9, adult
CPT/HCPCS: 31720; 36415; 71010-TC; 80048-TC; 80053-TC; 80164-TC; 80202-TC; 83735-TC; 83880; 84100-TC; 84439-TC; 84443-TC; 84484-TC; 85025-TC; 85730-TC; 87070-TC; 87081-TC; 87186-TC; 92611-TC; 94799-TC; A4606; A6248; A6402; C9113; J1650; J2543; J3370; J3490; J7030; J7050; J7060; Z7610

== ENCOUNTER 2016-08-06 09:50 | Emergency (ER) | payer MEDICAID ==
[~2016-08-06] VITALS: Ht 175.3 cm; Wt 81.6 kg
[~2016-08-06 09:50] MED LIST changes: +LINE600T GT; +MUPI22OI7; +PIPE3.379 IV
--- NOTE | 2016-08-06 10:14 | NUR ---
BIB RA FROM [facility] FOR SEIZURES, 4 MIN WITNESSED INITIAL, THEN 2 MIN WITH RA, GIVEN 4 MG VERSED, PATIENT IS NON VERBAL BASELINE, PLACED ON MONITOR, HAS TRACH BUT IS NOT VENT DEPENDENT, RT IS AT BEDSIDE,
[2016-08-06] MEDS ORDERED: LEVETIRACETAM (500MG) 500 MG in IV NS 0.9% 100 ML IV ONE (10:30)
[2016-08-06 10:47] LABS: BASOPHILS # (AUTO) 0.1 /CMM (0.0-0.2); BASOPHILS % (AUTO) 0.9 % (0.0-2.0); EOSINOPHILS # (AUTO) 0.5 /CMM (0.0-0.7); EOSINOPHILS % (AUTO) 5.5 % (0.0-6.0); HEMATOCRIT 32 % (39-51); HEMOGLOBIN 10.7 g/dL (13.5-17.5); LYMPHOCYTES % (AUTO) 22.7 % (20.0-44.0); MEAN CORPUSCULAR HEMOGLOBIN 32 PG (26.0-33.0); MEAN CORPUSCULAR HGB CONC 34 g/dl (31.0-36.0); MEAN CORPUSCULAR VOLUME 95 fL (80-96); MONOCYTES # (AUTO) 0.7 /CMM (0.1-1.30); MONOCYTES % (AUTO) 8.1 % (2.0-12.0); NEUTROPHILS # (AUTO) 5.4 /CMM (1.8-8.9); NEUTROPHILS % (AUTO) 62.8 % (43.0-81.0); PLATELET COUNT (AUTO) 373 /CMM (150-450); RDW COEFFICIENT OF VARIATION 13.4 (11.5-15.0); RED BLOOD CELL COUNT(AUTO) 3.32 MIL/uL (4.5-6.0); WHITE BLOOD COUNT (AUTO) 8.7 K/uL (4.3-11.0)
[2016-08-06] MEDS ORDERED: IV SET PRIMARY PUMP SET 1 EA INFUS.SET MC ONE (10:47)
[2016-08-06] MEDS ORDERED: IV NS 0.9% 1,000 ML ONE (10:49)
[2016-08-06] MEDS ORDERED: IV NS 0.9% 1,000 ML BAG IV ONE (11:00)
[2016-08-06 11:02] LABS: CALCIUM, SERUM 8.8 mg/dL (8.5-10.1); CREATININE 1.3 mg/dL (0.6-1.3); POTASSIUM 3.6 mmol/L (3.5-5.1)
--- NOTE | 2016-08-06 11:28 | NUR ---
CALLED DR.ASSA LIN, , PAGED TO CALL BACK
--- NOTE | 2016-08-06 11:36 | NUR ---
CALLED [facility] FOR TRANSPORT BACK TO [facility], ETA [id number]
[2016-08-06 12:54] VITALS: BP 106/66
--- NOTE | 2016-08-06 12:54 | NUR ---
PATIENT LEFT WITH PA FOR [facility] WITH IV IN RIGHT FORARM WHICH PATIENT CAME WITH, PATIENT IS ALERT BUT NON VERBAL, NAD NOTED UPON DISCHARGE.
== END 2016-08-06 12:57 | disposition home or self-care (01) ==
LOC: ER 09:53
DX: G40.909 Epilepsy, unspecified, not intractable, without status epilepticus (principal); I10 Essential (primary) hypertension; D64.9 Anemia, unspecified
CPT/HCPCS: 36415; 80048; 85025; 96365; 99284; A4606; J1953; J7030 ×2; Z7610

== ENCOUNTER 2016-08-08 14:30 | Inpatient (IN) | payer MEDICAID ==
[2016-08-08] MEDS ORDERED: ZINC220T GT (16:13)
[2016-08-08] MEDS ORDERED: ASCO500T10 GT (16:13)
[2016-08-08] MEDS ORDERED: MULT9LIQ GT (16:13)
[2016-08-08] MEDS ORDERED: SACC250C6 GT (16:13)
[2016-08-08] MEDS ORDERED: MAGNESIUM HYDROXIDE 30 ML UDC GT PRN (18:00)
[2016-08-08] MEDS ORDERED: MORPHINE SULFATE INJ 2 MG/ML DISP.SYRIN IV PRN (18:00)
[2016-08-08] MEDS ORDERED: ONDANSETRON HCL/PF 4 MG/2 ML VIAL IVP PRN (18:00)
[2016-08-08] MEDS ORDERED: CLONIDINE HCL 0.1 MG TABLET GT PRN (18:00)
[2016-08-08] MEDS ORDERED: BISACODYL SUPP (10 MG) 10 MG/SUPP.RECT SUPP.RECT RC PRN (18:00)
[2016-08-08] MEDS ORDERED: NA PHOS,M-B/NA PHOS,DI-BA 1 EA ENEMA RC PRN (18:00)
[2016-08-08] MEDS ORDERED: Z GUARD REMEDY 2 OZ OINT TP PRN (18:00)
[2016-08-08] MEDS ORDERED: HYDROCODONE/APAP 10/325MG 1 EA TABLET GT PRN (18:00)
[2016-08-08] MEDS ORDERED: LACT-209 GT (18:37)
[2016-08-08] MEDS ORDERED: IV SET PRIMARY PUMP SET 1 EA INFUS.SET MC ONE (18:42)
[2016-08-08] MEDS: IV NS 0.9% 1,000 ML IV PRN (18:48)
[2016-08-08] MEDS: SENNOSIDES 8.6 MG TABLET GT SCH (21:39)
[2016-08-08] MEDS: VALPROIC ACID 250 MG/5 ML UDC GT SCH (21:39)
[2016-08-08] MEDS: BACLOFEN (10 MG) 10 MG TABLET GT SCH (21:39)
[2016-08-08] MEDS: HEPARIN SODIUM, PORCINE 5000 UNITS/1 ML VIAL SQ SCH (21:40)
[2016-08-08] MEDS: FIBERSOURCE HN 1,000 ML BOTTLE GT PRN (22:07)
[2016-08-09] MEDS: VALPROIC ACID 250 MG/5 ML UDC GT SCH ×3 (05:47→21:38)
[2016-08-09] MEDS: IV NS 0.9% 1,000 ML IV PRN (05:52)
[2016-08-09] MEDS: BACLOFEN (10 MG) 10 MG TABLET GT SCH ×2 (09:08→21:37)
[2016-08-09] MEDS: ASCORBIC ACID 500 MG TABLET GT SCH (09:08)
[2016-08-09] MEDS: HEPARIN SODIUM, PORCINE 5000 UNITS/1 ML VIAL SQ SCH ×2 (09:10→21:42)
[2016-08-09] MEDS ORDERED: HYDROGEL DRESSING 90 GM TUBE TP PRN (10:30)
[2016-08-09] MEDS: Magnesium 1GM/D5W 100ML PREMIX 100 ML IV SCH ×2 (11:07→12:10)
[2016-08-09] MEDS: HYDROGEL DRESSING 90 GM TUBE TP SCH (12:11)
[2016-08-09] MEDS: PIPERACILLIN /TAZOBACTAM 3.375 G in IV D5W 50 ML IV SCH (17:53)
[2016-08-09] MEDS: SENNOSIDES 8.6 MG TABLET GT SCH (21:38)
[2016-08-10] MEDS: PIPERACILLIN /TAZOBACTAM 3.375 G in IV D5W 50 ML IV SCH ×5 (01:02→23:17)
[2016-08-10] MEDS: FIBERSOURCE HN 1,000 ML BOTTLE GT PRN ×2 (01:07→21:40)
[2016-08-10] MEDS: IV NS 0.9% 1,000 ML IV PRN ×3 (01:07→23:19)
[2016-08-10] MEDS: VALPROIC ACID 250 MG/5 ML UDC GT SCH ×3 (06:07→21:39)
[2016-08-10] MEDS: HYDROGEL DRESSING 90 GM TUBE TP SCH (08:36)
[2016-08-10] MEDS: ASCORBIC ACID 500 MG TABLET GT SCH (08:37)
[2016-08-10] MEDS: HEPARIN SODIUM, PORCINE 5000 UNITS/1 ML VIAL SQ SCH ×2 (08:37→21:42)
[2016-08-10] MEDS: BACLOFEN (10 MG) 10 MG TABLET GT SCH ×2 (08:37→21:39)
[2016-08-10] MEDS: SENNOSIDES 8.6 MG TABLET GT SCH (21:40)
[2016-08-11] MEDS: PIPERACILLIN /TAZOBACTAM 3.375 G in IV D5W 50 ML IV SCH ×3 (05:12→17:10)
[2016-08-11] MEDS: VALPROIC ACID 250 MG/5 ML UDC GT SCH ×2 (05:12→13:13)
[2016-08-11] MEDS: ASCORBIC ACID 500 MG TABLET GT SCH (08:18)
[2016-08-11] MEDS: HYDROGEL DRESSING 90 GM TUBE TP SCH (08:18)
[2016-08-11] MEDS: BACLOFEN (10 MG) 10 MG TABLET GT SCH (08:18)
[2016-08-11] MEDS: HEPARIN SODIUM, PORCINE 5000 UNITS/1 ML VIAL SQ SCH (08:26)
== END 2016-08-11 18:55 | DRG 254 ==
DX: Z43.1 Encounter for attention to gastrostomy (principal); J96.10 Chronic respiratory failure, unspecified whether with hypoxia or hypercapnia; Z93.0 Tracheostomy status; J44.9 Chronic obstructive pulmonary disease, unspecified; R47.01 Aphasia; G40.909 Epilepsy, unspecified, not intractable, without status epilepticus; Y83.9 Surgical procedure, unspecified as the cause of abnormal reaction of the patient, or of later complication, without mention of misadventure at the time of the procedure; F09 Unspecified mental disorder due to known physiological condition; K21.9 Gastro-esophageal reflux disease without esophagitis; I10 Essential (primary) hypertension; D63.8 Anemia in other chronic diseases classified elsewhere; Z86.73 Personal history of transient ischemic attack (TIA), and cerebral infarction without residual deficits; Z87.891 Personal history of nicotine dependence; L03.311 Cellulitis of abdominal wall; Z98.890 Other specified postprocedural states; G89.4 Chronic pain syndrome; Z79.899 Other long term (current) drug therapy; Y73.8 Miscellaneous gastroenterology and urology devices associated with adverse incidents, not elsewhere classified; Y92.129 Unspecified place in nursing home as the place of occurrence of the external cause